=== PATIENT | male | born 1980 | race Caucasian/White ===

== ENCOUNTER 2020-09-29 14:14 | Emergency (ER) | payer OTHER ==
[~2020-09-29] VITALS: Ht 175.3 cm; Wt 77.1 kg
[2020-09-29 14:17] VITALS: BP 140/67
[2020-09-29] MEDS: KETOROLAC 30 MG/ML VIAL IM ONE (16:20)
[2020-09-29] MEDS: ETHYL CHLORIDE 105 ML SPR TP ONE (16:35)
[2020-09-29 16:48] VITALS: BP 140/67
== END 2020-09-29 16:49 | disposition home or self-care (01) ==
LOC: MED 14:14
DX: B07.9 Viral wart, unspecified (principal)
CPT/HCPCS: 96372; 99283; J1885

== ENCOUNTER 2020-10-11 21:36 | Emergency (ER) | payer OTHER ==
[~2020-10-11] VITALS: Ht 175.3 cm; Wt 77.1 kg
[2020-10-11 21:44] VITALS: BP 125/92
--- NOTE | 2020-10-11 21:47 | NUR ---
TO LOBBY A/W BED AMBULATORY
--- NOTE | 2020-10-11 23:35 | NUR ---
PTS NAME CALLED X 3 NO RESPONSE
--- NOTE | 2020-10-11 23:36 | NUR ---
PT AMBULATED TO CHAIR B W/ STEADY GAIT.
[2020-10-11] MEDS ORDERED: ETHYL CHLORIDE 105 ML SPR TP ONE (23:55)
[2020-10-11] MEDS ORDERED: KETOROLAC 60 MG/2 ML VIAL IM ONE (23:55)
[2020-10-11] MEDS ORDERED: IBUP-2213 PO (23:58)
[2020-10-12 00:20] VITALS: BP 125/92
--- NOTE | 2020-10-12 00:20 | NUR ---
Patient discharged with v/s stable. Written and verbal after care instructions given and explained. Patient alert, oriented and verbalized understanding of instructions. Carried with steady gait. All questions addressed prior to discharge. ID band removed. Patient advised to follow up with PMD. Rx of IBUPROFEN given. Patient educated on indication of medication including possible reaction and side effects. Opportunity to ask questions provided and answered.
== END 2020-10-12 00:20 | disposition home or self-care (01) ==
LOC: MED 21:36
DX: B07.9 Viral wart, unspecified (principal); M79.10 Myalgia, unspecified site; R53.83 Other fatigue; F17.200 Nicotine dependence, unspecified, uncomplicated; Z79.899 Other long term (current) drug therapy; Z86.19 Personal history of other infectious and parasitic diseases
CPT/HCPCS: 96372; 99283; J1885